=== PATIENT | male | born 1985 ===

== ENCOUNTER 2018-10-25 12:49 | Emergency (ER) | payer OTHER ==
[2018-10-25 13:27] VITALS: BP 131/75; PULSE 91; RESP 20; TEMP 98.3
--- NOTE | 2018-10-25 13:35 | C.PDOC ---
History Of Present Illness 33 year old male presents to the ED for evaluation of left-sided facial pain which began around 3-4 days ago. Patient states he has been sick with flu-like symptoms for the past week. Patient is also complaining of a sore to his right leg which has been intermittent for the past year. He reports having a similar sore to his left leg, which self-resolved. Patient states this may have been caused by the knee sleeves he wears when playing basketball. Patient reports history of smoking. He denies shortness of breath, pain with deep breathing. Time Seen by Provider: 10/25/18 13:00 Chief Complaint (Nursing): Cough, Cold, Congestion History Per: Patient History/Exam Limitations: no limitations Onset/Duration Of Symptoms: Days (3-4) Current Symptoms Are (Timing): Still Present Pain Scale Rating Of: 4 Recent travel outside of the [place]: No Additional History Per: Patient Past Medical History Reviewed: Historical Data, Nursing Documentation, Vital Signs Vital Signs: Last Vital Signs Temp 98.3 F 10/25/18 13:10 Pulse 91 H 10/25/18 13:10 Resp 20 10/25/18 13:10 BP 131/75 10/25/18 13:10 Pulse Ox 93 L 10/25/18 13:10 - Medical History PMH: No Chronic Diseases Surgical History: No Surg Hx Family History: States: Unknown Family Hx - Social History Hx Alcohol Use: Yes Hx Substance Use: Yes - Immunization History Hx Tetanus Toxoid Vaccination: Yes Hx Influenza Vaccination: No Hx Pneumococcal Vaccination: No Review Of Systems Eyes: Negative for: Pain ENT: Positive for: Other (left-sided facial pain ) Cardiovascular: Negative for: Chest Pain, Palpitations Respiratory: Negative for: Shortness of Breath Gastrointestinal: Negative for: Vomiting, Abdominal Pain Genitourinary: Negative for: Dysuria Musculoskeletal: Negative for: Neck Pain, Shoulder Pain Skin: Positive for: Rash Neurological: Negative for: Weakness, Numbness Physical Exam - Physical Exam Appears: Non-toxic, No Acute Distress Skin: Normal Color, Warm, Dry, No Rash, Other (4cm flat macular patch with hyperpigmentation and excoriation to right lower anterior leg ) Head: Atraumatic, Tenderness (over left maxiallary sinus ) Eye(s): bilateral: Normal Inspection Ear(s): Bilateral: Normal Nose: Normal, No Discharge Oral Mucosa: Moist Gingiva: Normal Appearing, No Swelling Throat: Normal, No Erythema, No Exudate Neck: Normal ROM, Supple Lymphatic: No Adenopathy (cervical ) Chest: Symmetrical, No Deformity, No Tenderness Cardiovascular: Rhythm Regular, No Friction Rub, No Murmur Respiratory: Normal Breath Sounds, No Rales, No Rhonchi, No Stridor, No Wheezing Extremity: Normal ROM, No Swelling Neurological/Psych: Oriented x3, Normal Speech, Normal Cognition Gait: Steady ED Course And Treatment O2 Sat by Pulse Oximetry: 96 (on Ra) Pulse Ox Interpretation: Normal - Other Rad CXR X-Ray: Viewed By Me, Read By Radiologist Interpretation: Date of service: 10/25/2018. HISTORY: Cough and congestion. COMPARISON: No prior. TECHNIQUE: Chest PA and lateral. FINDINGS: LINES AND TUBES: None. LUNG AND PLEURA: The lungs are well inflated and clear. No pleural effusion or pneumothorax. HEART AND MEDIASTINUM: The heart is not enlarged. No aortic atherosclerotic calcifications present. The hilar and mediastinal contours are within normal limits. SKELETAL STRUCTURES: The bony structures are within normal limits for the patient's age. VISUALIZED UPPER ABDOMEN: Normal. OTHER FINDINGS: None. IMPRESSION: No active pulmonary disease. Medical Decision Making Medical Decision Making: Progress: CXR ordered and reviewed. Augmentin PO and Prednisone PO given. Disposition - Disposition Referrals: [facility] [Outside] Disposition: HOME/ ROUTINE Disposition Time: 14:54 Condition: GOOD Additional Instructions: Follow up with the medical doctor within 1-2 days. Return if worsened. 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 - Scribe Statement The provider has reviewed the documentation as recorded by the Scribe (Carla Cruz) All medical record entries made by the Scribe were at my direction and personally dictated by me. I have reviewed the chart and agree that the record accurately reflects my personal performance of the history, physical exam, medical decision making, and the department course for this patient. I have also personally directed, reviewed, and agree with the discharge instructions and disposition.
[2018-10-25] MEDS ORDERED: Amoxicillin-Clav 875-125 mg Tab PO STA (14:25)
[2018-10-25] MEDS ORDERED: Amoxicillin-Clav 875-125 mg Tab PO ONE (14:42)
--- NOTE | 2018-10-25 14:51 | RAD ---
Date of service: 10/25/2018 HISTORY: Cough and congestion COMPARISON: No prior. TECHNIQUE: Chest PA and lateral FINDINGS: LINES AND TUBES: None. LUNG AND PLEURA: The lungs are well inflated and clear. No pleural effusion or pneumothorax. HEART AND MEDIASTINUM: The heart is not enlarged. No aortic atherosclerotic calcifications present. The hilar and mediastinal contours are within normal limits. SKELETAL STRUCTURES: The bony structures are within normal limits for the patient's age. VISUALIZED UPPER ABDOMEN: Normal. OTHER FINDINGS: None. IMPRESSION: No active pulmonary disease.
[2018-10-27 06:09] VITALS: O2SAT 96
== END 2018-10-25 15:17 | disposition home or self-care (01) ==
LOC: C.ER 12:49
DX: J32.9 Chronic sinusitis, unspecified (principal); F17.210 Nicotine dependence, cigarettes, uncomplicated